=== PATIENT | male | born 1955 | race Caucasian/White ===

== ENCOUNTER → 2019-09-26 | Outpatient (CLI) | payer BC ==
[~2019-09-26] MED LIST: REGADENOSON INJ 0.4 MG/5 ML DISP.SYRIN IV ONE
--- NOTE | 2019-09-26 12:04 | DRAGON STRESS TEST REPORT ---
Name: Tima Crawford : Apr Date: SEP 22 The patient underwent a stress/rest, single isotope SPECT Imaging with pharmacological stress and gated SPECT imaging on for evaluation of. The patient underwent infusion of regadnoson 0.4mg IV using the standard protocol. The heart rate was 64 beats per minute at baseline and increased to 88 beats during the infusion of regadenoson. The resting blood pressure was 120/64 mm/Hg and increased to 129/69 mm/Hg. The patient complained of shortness of breath during the procedure. The resting electrocardiogram demonstrated NSR. Stress electrocardiogram is non- diagnostic in the setting of pharmacological stress. Myocardial perfusion imaging was performed at rest following the injection of 15.49 mCi of sestamibi. At peak pharmacolgic effect, the patient was injected with N OT REPORTED mCi of sestamibi. Gating post-stress tomographic imaging was performed 60 minutes after stress. Findings The overall quality of the study is excellent. Raw images demonstrate no significant artifacts. Left ventricular cavity is noted to be normal/ enlarged on the rest and stress studies. Resting SPECT images demonstrate a very small, of mild intensity perfusion defect in the inferior wall. The stress images reveal a very small, of mild intensity perfusion defect in the inferior wall. Gated SPECT imaging reveals normal myocardial thickening and wall motion. The left ventricular ejection fraction was calculated to be 59% Impression -Myocardial perfusion imaging is abnormal with the above artifacts. -There is scintigraphic evidence of infarct vs diaphragmatic attenuation in the inferior wall. I favor the latter given the normal thickening and motion of the inferior wall as well as the normal LVSF. -Overall left ventricular systolic function was normal without wall motion abnormalities. -There are no prior studies for comparison. MTDD
== END ==
LOC: RAD 06:27
PROVIDERS: ATTEND Internal Medicine Cardiovascular Disease
DX: I25.10 Atherosclerotic heart disease of native coronary artery without angina pectoris (principal)
CPT/HCPCS: 93017; 78452; A9500; J2785; Q9969